=== PATIENT | female | born 1995 | race Caucasian/White ===

== ENCOUNTER 2018-06-28 12:51 | Day surgery (SDC) | payer OTHER ==
[~2018-06-28] VITALS: Ht 175.3 cm; Wt 71.9 kg
[~2018-06-28 12:51] MED LIST: Amoxicillin500 MG PO; Bactrim Ds Tab1 EACH PO; CITA20 PO; CODACE30 PO; HYDMOR2 PO; IBUP600 PO; Macrobid 100 M100 MG PO; OMEP40CA12 PO; ONDA8; Omeprazole20 M1; PROM25 PO; Pepcid40 MG PO; Pyridium100 MG PO; SUCR1 PO; SULTRIDS; Veetids 500500 MG PO
[2018-06-28] MEDS ORDERED: OXTELLAR XR150 MG (13:58)
== END 2018-06-28 15:40 | disposition home or self-care (01) ==
LOC: ORSCSDS 12:51
PROVIDERS: Internal Medicine Gastroenterology
PROC: 0DJD8ZZ Inspection of Lower Intestinal Tract, Via Natural or Artificial Opening Endoscopic (ICD-10-PCS; principal; 2018-06-28 14:30)
DX: K92.1 Melena (principal); R10.9 Unspecified abdominal pain; K64.8 Other hemorrhoids; Z79.899 Other long term (current) drug therapy
CPT/HCPCS: J2250; J7120

== ENCOUNTER 2020-12-12 23:11 | Emergency (ER) | payer OTHER ==
[~2020-12-12] VITALS: Ht 175.3 cm; Wt 78.0 kg
[~2020-12-12 23:11] MED LIST changes: +OXTELLAR XR150 MG PO
[2020-12-12] MEDS ORDERED: HYDHCL25 PO (23:44)
[2020-12-12] MEDS ORDERED: ABILIFY MYCITE5 M2 PO (23:45)
[2020-12-13] MEDS ORDERED: Ativan1 MG PO (00:06)
== END 2020-12-13 00:30 | disposition home or self-care (01) ==
LOC: ER 23:11
DX: G47.00 Insomnia, unspecified (principal); F41.9 Anxiety disorder, unspecified; R44.0 Auditory hallucinations; K21.9 Gastro-esophageal reflux disease without esophagitis; Z88.5 Allergy status to narcotic agent; Z79.899 Other long term (current) drug therapy
CPT/HCPCS: 99284; A9270

== ENCOUNTER 2021-01-11 19:01 | Observation (INO) | payer OTHER ==
[~2021-01-11] VITALS: Ht 175.3 cm; Wt 74.8 kg
[~2021-01-11 19:01] MED LIST changes: +ABILIFY MYCITE5 M2 PO; +Ativan1 MG PO; +HYDHCL25 PO
[2021-01-11 19:55] LABS: Source, Urine Clean Catch
[2021-01-11 19:59] LABS: Appearance, Urine Clear (Clear); Bilirubin, Urine Neg (Neg); Blood, Urine 2+ (Neg); Color, Urine Yellow (P-Yellow); Glucose Qualitative, Urine Neg (Neg); Ketones, Urine Neg (Neg); Leukocyte Esterase, Urine 1+ (Neg); Nitrite, Urine Neg (Neg); Protein, Urine Neg (Neg); Specific Gravity, Urine 1.015 (1.003-1.022); Urobilinogen, Urine NORM (Normal)
[2021-01-11 20:05] LABS: Red Blood Cells, Urine 0-2 /hpf (0-2)
[2021-01-11 20:06] LABS: Bacteria Mod /hpf; Squamous Epithelial Cells Few /hpf (Few)
[2021-01-11 20:09] LABS: BASOPHILS ABSOLUTE AUTO 0.04 K/mm3 (0.00-0.23); BASOPHILS PERCENT AUTO 1 % (0-2); EOSINOPHILS ABSOLUTE AUTO 0.09 K/mm3 (0.00-0.68); EOSINOPHILS PERCENT AUTO 2 % (0-6); Hemoglobin 12.6 g/dL (11.5-16.0); IMMATURE GRAN ABSOLUTE AUTO 0.03 K/mm3 (0.00-0.10); IMMATURE GRAN PERCENT AUTO 1 % (0-1); LYMPHOCYTES ABSOLUTE AUTO 1.77 K/mm3 (0.84-5.20); LYMPHOCYTES PERCENT AUTO 33 % (21-46); MONOCYTES ABSOLUTE AUTO 0.38 K/mm3 (0.16-1.47); MONOCYTES PERCENT AUTO 7 % (4-13); Mean Corpuscular HGB Conc 34.1 g/dL (31.5-36.5); Mean Corpuscular Volume 85 fL (80-100); Mean Platelet Volume 10.1 fL (9.1-12.4); NEUTROPHILS PERCENT AUTO 56 % (41-73); Platelet Count 208 K/mm3 (150-400); RDW Coefficient Variation 12.4 % (11.7-14.2); RDW Standard Deviation 38.5 fL (35.1-46.3); Red Blood Cell Count 4.35 M/mm3 (3.80-5.20); White Blood Cell Count 5.31 K/mm3 (4.00-11.30)
[2021-01-11] MEDS ORDERED: MINIPRESS1 MG PO (20:12)
[2021-01-11] MEDS ORDERED: QUET25 PO (20:13)
[2021-01-11 20:17] LABS: U Amphetamine Screen Not Detected; U Barbituate Screen Not Detected; U Benzodiazapine Screen Not Detected; U Buprenorphine Screen Not Detected; U Cannabinoids Screen Not Detected; U Cocaine Screen Not Detected; U Methadone Screen Not Detected; U Methamphetamine Screen Not Detected; U Opiates Screen Not Detected; U Oxycodone Screen Not Detected; U Phencyclidine Screen Not Detected; U Propoxyphene Screen Not Detected
[2021-01-11 20:33] LABS: Alanine Aminotransfer (ALT/SGP 24 U/L (12-78); Albumin, Blood 3.9 g/dL (3.4-5.0); Albumin/Globulin Ratio 1.1 (0.8-1.8); Alk Phos 52 U/L (50-136); Anion Gap 4 mmol/L (6-16); Aspartate Aminotrans (AST/SGOT 14 U/L (12-37); Bilirubin, Total 0.4 mg/dL (0.1-1.0); Blood Urea Nitrogen 9 mg/dL (8-24); Bun/Creatinine Ratio 11.8 (12.0-20.0); CO2, Blood 27 mmol/L (21-32); Calcium, Blood 8.5 mg/dL (8.5-10.1); Chloride, Blood 108 mmol/L (98-108); Creatinine, Blood 0.76 mg/dL (0.40-1.00); Ethanol (Alcohol), Blood, Med <3 mg/dL; Globulin, Blood 3.5 g/dL (2.2-4.0); Glomerular Filtration Rate >60 (60-); Glucose, Blood 109 mg/dL (70-99); Potassium, Blood 3.7 mmol/L (3.5-5.5); Salicylate <1.7 mg/dL (2.8-20.0); Sodium, Blood 139 mmol/L (136-145); Total Protein, Blood 7.4 g/dL (6.4-8.2)
[2021-01-11 20:36] LABS: Acetaminophen, Random <2.0 ug/mL (10.0-30.0)
[2021-01-12 13:08] LABS: Influenza A, PCR NEGATIVE (NEGATIVE); Influenza B, PCR NEGATIVE (NEGATIVE); Resp Syncytial Virus, PCR NEGATIVE (NEGATIVE); SARS-Cov-2 (COVID-19) PCR, MMC NEGATIVE (NEGATIVE)
== END 2021-01-12 14:40 | disposition home or self-care (01) ==
LOC: ER 19:01 → EOR 19:02
PROVIDERS: Emergency Medicine; Physician Assistant; ADMIT Emergency Medicine
DX: F43.10 Post-traumatic stress disorder, unspecified (principal); F23 Brief psychotic disorder; F31.9 Bipolar disorder, unspecified; F60.3 Borderline personality disorder; Z20.822 Contact with and (suspected) exposure to COVID-19
CPT/HCPCS: 0241U; 36415; 80053; 81001; 81025; 85025; 87086; 99285; A9270; G0378; G0480; Q3014

== ENCOUNTER → 2022-01-17 | Outpatient (CLI) | payer OTHER ==
[~2022-01-17] MED LIST changes: +MINIPRESS1 MG PO; +QUET25 PO
[2022-01-18 10:25] LABS: Candida species (DNA Probe) Negative (NEGATIVE); G. vaginalis (DNA Probe) Negative (NEGATIVE); T. vaginalis (DNA Probe) Negative (NEGATIVE)
== END | disposition home or self-care (01) ==
LOC: LAB 16:00 → LAB SHORT 16:00
PROVIDERS: Family Medicine
DX: N89.8 Other specified noninflammatory disorders of vagina (principal)
CPT/HCPCS: 87480; 87510; 87660

== ENCOUNTER 2022-03-31 07:50 | Day surgery (SDC) | payer OTHER ==
[2022-03-31] MEDS ORDERED: HYDROCODONE-AC1 EA18 PO (09:00)
[2022-03-31] MEDS ORDERED: BUPR150ER PO (09:01)
[2022-03-31] MEDS ORDERED: ONDA4ODT MM (09:01)
== END 2022-03-31 10:02 | disposition home or self-care (01) ==
LOC: ATC 07:50
DX: R42 Dizziness and giddiness (principal); R06.02 Shortness of breath; R55 Syncope and collapse; R00.0 Tachycardia, unspecified; R07.89 Other chest pain; J45.909 Unspecified asthma, uncomplicated; Z88.5 Allergy status to narcotic agent; Z79.899 Other long term (current) drug therapy
CPT/HCPCS: 80400; 82533; 96374; J0834

== ENCOUNTER → 2022-05-14 | Outpatient (CLI) | payer OTHER ==
[~2022-05-14] MED LIST changes: +BUPR150ER PO; +HYDROCODONE-AC1 EA18 PO; +ONDA4ODT MM
== END | disposition home or self-care (01) ==
LOC: LAB 16:02 → LAB SHORT 16:02
DX: N39.0 Urinary tract infection, site not specified (principal)
CPT/HCPCS: 87086

== ENCOUNTER 2022-07-08 03:30 | Day surgery (SDC) | payer OTHER | END 2022-07-08 09:58 | disposition home or self-care (01) | LOC: ATC 03:30 | DX: R53.83 Other fatigue (principal) | CPT/HCPCS: 80400; 82533; J0834 ==

== ENCOUNTER → 2022-07-10 | Outpatient (CLI) | payer OTHER | END | disposition home or self-care (01) | LOC: LAB SHORT 14:45 → LAB 14:45 | DX: N39.0 Urinary tract infection, site not specified (principal) | CPT/HCPCS: 87086 ==

== ENCOUNTER → 2022-11-02 | Outpatient (CLI) | payer OTHER ==
[2022-11-02 17:55] LABS: BASOPHILS ABSOLUTE AUTO 0.04 K/mm3 (0.00-0.23); BASOPHILS PERCENT AUTO 1 % (0-2); EOSINOPHILS ABSOLUTE AUTO 0.06 K/mm3 (0.00-0.68); EOSINOPHILS PERCENT AUTO 1 % (0-6); Hematocrit 36.8 % (33.0-51.0); Hemoglobin 12.9 g/dL (11.5-16.0); IMMATURE GRAN ABSOLUTE AUTO 0.01 K/mm3 (0.00-0.10); IMMATURE GRAN PERCENT AUTO 0 % (0-1); LYMPHOCYTES ABSOLUTE AUTO 1.93 K/mm3 (0.84-5.20); LYMPHOCYTES PERCENT AUTO 37 % (21-46); MONOCYTES ABSOLUTE AUTO 0.42 K/mm3 (0.16-1.47); MONOCYTES PERCENT AUTO 8 % (4-13); Mean Corpuscular HGB 29.2 pg (26.0-34.0); Mean Corpuscular HGB Conc 35.1 g/dL (31.5-36.5); Mean Corpuscular Volume 83 fL (80-100); Mean Platelet Volume 10.4 fL (9.1-12.4); NEUTROPHILS ABSOLUTE AUTO 2.82 K/mm3 (1.96-9.15); NEUTROPHILS PERCENT AUTO 53 % (41-73); Platelet Count 231 K/mm3 (150-400); RDW Standard Deviation 39.5 fL (35.1-46.3); Red Blood Cell Count 4.42 M/mm3 (3.80-5.20); White Blood Cell Count 5.28 K/mm3 (4.00-11.30)
== END | disposition home or self-care (01) ==
LOC: LAB 17:50 → LAB SHORT 17:50
PROVIDERS: Physician Assistant
DX: R10.9 Unspecified abdominal pain (principal)
CPT/HCPCS: 85025; 87086

== ENCOUNTER 2022-12-11 20:19 | Emergency (ER) | payer OTHER ==
[~2022-12-11] VITALS: Ht 172.7 cm; Wt 70.8 kg
[2022-12-11 23:48] LABS: BASOPHILS ABSOLUTE AUTO 0.06 K/mm3 (0.00-0.23); BASOPHILS PERCENT AUTO 1 % (0-2); EOSINOPHILS ABSOLUTE AUTO 0.12 K/mm3 (0.00-0.68); EOSINOPHILS PERCENT AUTO 2 % (0-6); Hematocrit 35.3 % (33.0-51.0); Hemoglobin 12.1 g/dL (11.5-16.0); IMMATURE GRAN ABSOLUTE AUTO 0.02 K/mm3 (0.00-0.10); IMMATURE GRAN PERCENT AUTO 0 % (0-1); LYMPHOCYTES ABSOLUTE AUTO 2.56 K/mm3 (0.84-5.20); LYMPHOCYTES PERCENT AUTO 40 % (21-46); MONOCYTES ABSOLUTE AUTO 0.58 K/mm3 (0.16-1.47); MONOCYTES PERCENT AUTO 9 % (4-13); Mean Corpuscular HGB 28.7 pg (26.0-34.0); Mean Corpuscular HGB Conc 34.3 g/dL (31.5-36.5); Mean Corpuscular Volume 84 fL (80-100); Mean Platelet Volume 10.7 fL (9.1-12.4); NEUTROPHILS ABSOLUTE AUTO 3.03 K/mm3 (1.96-9.15); NEUTROPHILS PERCENT AUTO 48 % (41-73); Platelet Count 214 K/mm3 (150-400); RDW Coefficient Variation 12.9 % (11.7-14.2); RDW Standard Deviation 39.1 fL (35.1-46.3); Red Blood Cell Count 4.22 M/mm3 (3.80-5.20); White Blood Cell Count 6.37 K/mm3 (4.00-11.30)
[2022-12-12 00:13] LABS: Albumin, Blood 4.1 g/dL (3.4-5.0); Albumin/Globulin Ratio 1.3 (0.8-1.8); Bilirubin, Total 0.5 mg/dL (0.1-1.0); Calcium, Blood 8.8 mg/dL (8.5-10.1); Creatinine, Blood 0.79 mg/dL (0.40-1.00); Globulin, Blood 3.2 g/dL (2.2-4.0); Potassium, Blood 3.6 mmol/L (3.5-5.5); Total Protein, Blood 7.3 g/dL (6.4-8.2)
[2022-12-12 02:47] LABS: PCO2 Arterial 36.7 mmHg (35-45); PO2 Arterial 101 mmHg (80-100); pH Blood Arterial 7.42 (7.35-7.45)
== END 2022-12-12 03:15 | disposition home or self-care (01) ==
LOC: ER 20:19
PROVIDERS: Student in an Organized Health Care Education/Training Program
DX: L98.8 Other specified disorders of the skin and subcutaneous tissue (principal); Z88.8 Allergy status to other drugs, medicaments and biological substances; Z88.5 Allergy status to narcotic agent; Z79.899 Other long term (current) drug therapy
CPT/HCPCS: 36415; 36600; 75635; 80053; 82375; 82803; 85025; 93970; Q9967